=== PATIENT | female | born 1965 | race Hispanic/Latino ===

== ENCOUNTER 2018-08-31 14:17 | Emergency (ER) | payer OTHER ==
[~2018-08-31] VITALS: Ht 157.5 cm; Wt 71.7 kg
[~2018-08-31 14:17] MED LIST: Z.0.METOPROLOL TART2 PO; Z.0.VASOTEC10 MG PO
--- OUTSIDE RECORDS SUMMARY | 2018-08-31 14:20 | XMS REPORT ---
Author Author Nina Fry [facility] eClinicalWorks Address Unknown Phone Unavailable Care Team Providers Care Meter Record Clerk Name Role Phone Nina Fry CP Unavailable Allergies, Adverse Reactions, Alerts Substance Reaction Event Type N.K.D.A. Info Not Available Non Drug Allergy Problems Problem Type Condition Code Onset Dates Condition Status Assessment Lumbago with sciatica, left side M54.42 Active Assessment Screening for colon cancer Z12.11 Active Assessment Other chronic pain G89.29 Active Assessment History of prediabetes Z87.898 Active Assessment Onychomycosis B35.1 Active Assessment Right foot pain M79.671 Active Problem Lumbago with sciatica, left side M54.42 Active Problem Hyperlipidemia, unspecified hyperlipidemia type E78.5 Active Problem Other chronic pain G89.29 Active Assessment Screening for breast cancer Z12.39 Active Assessment Screening for osteoporosis Z13.820 Active Assessment Encntr for general adult medical exam w/o abnormal findings Z00.00 Active Medications Medication Code System Code Instructions Start Date End Date Status Dosage Lyrica [facility] 31700947957 25 MG Orally Twice a day Active 2 capsules Keflex [facility] 77368997698 500 mg Orally every 12 hrs July 27, 2018 August 06, 2018 Active 1 capsule Losartan Potassium [facility] 32055609488 100 MG Orally Once a day Active 1 tablet Hydrochlorothiazide [facility] 27392461428 25 MG Orally Once a day Active 1 tablet in the morning Zorvolex [facility] [address]-62 18 MG Orally daily Active 1 capsule with food or milk as needed [facility] 47417960422 10-325 MG Orally every 6 hrs Active 1 tablet as needed Diflucan [facility] 39454834998 200 MG Orally q weekly July 16, 2018 Jan 12, 2019 Active 1 tablet Dicyclomine HCl [facility] [address]-05 20 mg Orally Twice a day Active 1 tablet Simvastatin [facility] 59558811457 40 MG Orally Once a day Active 1 tablet in the evening Dexilant [facility] 70187381837 60 MG Orally Once a day Active 1 capsule Tramadol HCl [facility] 37498207880 50 MG Orally every 6 hrs Active 1 tablet as needed Simvastatin [facility] 46400696463 40 mg Orally Once a day July 16, 2018 Active 1 tablet in the evening Vital Signs Date/Time: July 27, 2018 BMI 28.71 Index Weight 157 lbs Height 62 in Temperature 98.6 F Cardiac Monitoring Heart Rate 66 /min Blood Pressure Diastolic 80 mm Hg Blood Pressure Systolic 124 mm Hg Results No Known Results Summary Purpose eClinicalWorks Submission
--- OUTSIDE RECORDS SUMMARY | 2018-08-31 14:20 | XMS REPORT ---
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 Allergies, Adverse Reactions, Alerts Allergy Name Allergy Type Status Severity Reaction(s) Onset Date Inactive Date Treating Clinician Comments No Known Allergies DA Active U 2018-02-09 00:00:00 No Known Allergies DA Active U 2013-12-21 00:00:00 Medications This patient has no known medications.
--- OUTSIDE RECORDS SUMMARY | 2018-08-31 14:20 | XMS REPORT | Continuity of Care Document ---
Author Author [facility] Address Unknown Phone Unavailable Problems Problem Status Onset Date Classification Date Reported Comments Source Lumbago with sciatica, left side Active Problem 08/18/2018 [facility] Hyperlipidemia, unspecified hyperlipidemia type Active Problem 08/18/2018 [facility] Other chronic pain Active Problem 08/18/2018 [facility] Nausea Active Diagnosis 08/18/2018 [facility] Non-recurrent acute serous otitis media of left ear Active Diagnosis 08/18/2018 [facility] Screening for colon cancer Active Diagnosis 08/02/2018 [facility] History of prediabetes Active Diagnosis 08/02/2018 [facility] Onychomycosis Active Diagnosis 08/02/2018 [facility] Right foot pain Active Diagnosis 08/02/2018 [facility] Screening for breast cancer Active Diagnosis 08/02/2018 [facility] Screening for osteoporosis Active Diagnosis 08/02/2018 [facility] Encntr for general adult medical exam w/o abnormal findings Active Diagnosis 08/02/2018 [facility] Medications Medication Details Route Status Patient Instructions Ordering Provider Order Date Source Meclizine HCl 1 tablet as needed Orally Active 25 MG Orally Once a day PRN Ghebranious 08/06/2018 [facility] Atorvastatin Calcium 1 tablet Orally Active 80 mg Orally Once a day Ghebranious 08/06/2018 [facility] Norel AD 1 tablet as needed Orally Active 4-10-325 MG Orally every 4-6 hours Ghebranious 08/06/2018 [facility] Keflex 1 capsule Orally Active 500 mg Orally every 12 hrs Ghebranious 07/27/2018 [facility] Diflucan 1 tablet Orally Active 200 MG Orally q weekly Fry 07/16/2018 [facility] Simvastatin 1 tablet in the evening Orally Active 40 mg Orally Once a day Fry 07/16/2018 [facility] Losartan Potassium 1 tablet Orally Active 100 MG Orally Once a day [facility] Dexilant 1 capsule Orally Active 60 MG [facility] Tramadol HCl 1 tablet as needed Orally Active 50 MG Orally every 6 hrs [facility] Leckrone 1 tablet as needed Orally Active 10-325 MG Orally every 6 hrs [facility] Simvastatin 1 tablet in the evening Orally Active 40 MG Orally Once a day [facility] Dicyclomine HCl 1 tablet Orally Active 20 mg Orally Twice a day [facility] Hydrochlorothiazide 1 tablet in the morning Orally Active 25 MG Orally Once a day [facility] Lyrica 2 capsules Orally Active 25 MG Orally Twice a day [facility] Zorvolex 1 capsule with food or milk as needed Orally Active 18 MG [facility] Zorvolex 1 capsule with food or milk as needed Orally Active 18 MG [facility] Dicyclomine HCl 1 tablet Orally Active 20 mg Orally Twice a [facility] Allergies, Adverse Reactions, Alerts Substance Category Reaction Severity Reaction type Status Date Reported Comments Source N.K.D.A. Adverse Reaction Info Not Available Adverse Reaction Active 08/06/2018 [facility] Immunizations Immunization Date Given Site Status Last Updated Comments Source Results Order Name Results Value Reference Range Date Interpretation Comments Source Vital Signs Vital Sign Value Date Comments Source Weight 156 08/06/2018 [facility] Height 62 08/06/2018 [facility] Heart Rate 83 08/06/2018 [facility] Diastolic (mm Hg) 68 08/06/2018 [facility] Systolic (mm Hg) 122 08/06/2018 [facility] Weight 157 07/27/2018 [facility] Height 62 07/27/2018 [facility] Temperature Oral (F) 98.6 F 07/27/2018 [facility] Heart Rate 66 07/27/2018 [facility] Diastolic (mm Hg) 80 07/27/2018 [facility] Systolic (mm Hg) 124 07/27/2018 [facility] Encounters Location Location Details Encounter Type Encounter Number Reason For Visit Attending Provider ADM Date DC Date Status Source Procedures Procedure Code Date Perfomer Comments Source
--- OUTSIDE RECORDS SUMMARY | 2018-08-31 14:20 | XMS REPORT ---
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 Info Not Available Non Drug Allergy Problems Problem Type Condition Code Onset Dates Condition Status Problem Lumbago with sciatica, left side M54.42 Active Problem Hyperlipidemia, unspecified hyperlipidemia type E78.5 Active Problem Other chronic pain G89.29 Active Assessment Nausea R11.0 Active Assessment Hyperlipidemia, unspecified hyperlipidemia type E78.5 Active Assessment Non-recurrent acute serous otitis media of left ear H65.02 Active Medications Medication Code System Code Instructions Start Date End Date Status Dosage Losartan Potassium ND 79723694829 100 MG Orally Once a day Active 1 tablet Dexilant [facility] 42047200524 60 MG Orally Once a day Active 1 capsule Tramadol HCl ND 38274960972 50 MG Orally every 6 hrs Active 1 tablet as needed [place] ND 81843507705 10-325 MG Orally every 6 hrs Active 1 tablet as needed Simvastatin ND 44326312960 40 MG Orally Once a day Inactive 1 tablet in the evening Dicyclomine HCl ND 75593263331 20 mg Orally Twice a day Active 1 tablet Hydrochlorothiazide ND 45439318271 25 MG Orally Once a day Active 1 tablet in the morning Keflex ND 00922867666 500 mg Orally every 12 hrs July 27, 2018 August 06, 2018 Active 1 capsule Lyrica ND 01115906184 25 MG Orally Twice a day Active 2 capsules Zorvolex [facility] 94324520543 18 MG Orally daily Active 1 capsule with food or milk as needed Meclizine HCl ND 86459545653 25 MG Orally Once a day PRN August 06, 2018 Active 1 tablet as needed Atorvastatin Calcium ND 84377551120 80 mg Orally Once a day August 06, 2018 Active 1 tablet Norel AD [facility] 27008091739 4-10-325 MG Orally every 4-6 hours August 06, 2018 Active 1 tablet as needed Vital Signs Date/Time: August 06, 2018 BMI 28.53 Index Weight 156 lbs Height 62 in Cardiac Monitoring Heart Rate 83 /min Blood Pressure Diastolic 68 mm Hg Blood Pressure Systolic 122 mm Hg Results No Known Results Summary Purpose eClinicalWorks Submission
== END 2018-08-31 14:52 | disposition home or self-care (01) ==
LOC: ER 14:17
DX: M54.2 Cervicalgia (principal); S16.1XXA Strain of muscle, fascia and tendon at neck level, initial encounter; V43.51XA Car driver injured in collision with sport utility vehicle in traffic accident, initial encounter; Y92.481 Parking lot as the place of occurrence of the external cause; I10 Essential (primary) hypertension; M54.5 Low back pain; G89.29 Other chronic pain
CPT/HCPCS: 99282